=== PATIENT | male | born 1975 | race Native Hawaiian/Other Pacific Islander ===

== ENCOUNTER 2016-11-13 07:25 | Outpatient (CLI) | payer BC | END 2016-11-13 08:25 | disposition home or self-care (01) | LOC: LABW 07:25 | PROVIDERS: Internal Medicine Cardiovascular Disease | DX: I10 Essential (primary) hypertension (principal); I48.91 Unspecified atrial fibrillation; Z13.220 Encounter for screening for lipoid disorders; R06.09 Other forms of dyspnea | CPT/HCPCS: 36415; 80061; 80076 ==